=== PATIENT | male | born 2005 | race Caucasian/White ===

== ENCOUNTER 2025-07-18 17:58 | Emergency (ER) | payer OTHER ==
[~2025-07-18] VITALS: Ht 185.4 cm; Wt 89.1 kg
[2025-07-18 20:39] VITALS: BP 143/76; TEMP 98.3; O2SAT 98
== END 2025-07-18 20:47 | disposition home or self-care (01) ==
LOC: M ED 17:58
DX: N50.3 Cyst of epididymis (principal); F17.290 Nicotine dependence, other tobacco product, uncomplicated; Z88.1 Allergy status to other antibiotic agents

== ENCOUNTER 2025-10-14 08:26 | Day surgery (SDC) | payer OTHER ==
[~2025-10-14] VITALS: Ht 185.4 cm; Wt 89.9 kg
[2025-10-14] MEDS ORDERED: dexAMETHasone 4 MG/ML 1 ML VIAL As Ordered ONE (09:54)
[2025-10-14] MEDS ORDERED: LIDOCAINE 2% 100 MG/5 ML SDV (FOR ANES.) As Ordered ONE (09:54)
[2025-10-14] MEDS ORDERED: MIDAZOLAM INJ 2 MG/2 ML VIAL As Ordered ONE (09:54)
[2025-10-14] MEDS ORDERED: ONDANSETRON 4MG/2ML VIAL As Ordered ONE (09:57)
[2025-10-14] MEDS ORDERED: KETOROLAC 30 MG/ML 1 ML VIAL As Ordered ONE (09:57)
[2025-10-14] MEDS: ceFAZolin SOD 2 GM IV ONCE IV ONE (10:09)
[2025-10-14] MEDS ORDERED: ACETAMINOPHEN 1000MG/100ML IV BAG As Ordered ONE (10:19)
[2025-10-14] MEDS ORDERED: HYDROmorphone HCL 2 MG/ML 1 ML VIAL As Ordered ONE (10:34)
[2025-10-14] MEDS: LIDOCAINE 1% SDV 30 ML VIAL As Ordered ONE (10:55)
[2025-10-14] MEDS ORDERED: LR 1,000 ML IV SCH (11:10)
[2025-10-14] MEDS ORDERED: ONDANSETRON 4MG/2ML VIAL IV PRN (11:10)
[2025-10-14] MEDS ORDERED: HYDROMORPHONE HCL 0.5 MG/0.5 ML SYRINGE IV PRN (11:10)
[2025-10-14] MEDS ORDERED: CEPH500C PO (11:24)
[2025-10-14] MEDS ORDERED: OXYC1TAB23 PO (11:24)
[2025-10-14 12:20] VITALS: BP 131/66; TEMP 97.8; O2SAT 100
== END 2025-10-14 13:00 | disposition home or self-care (01) ==
LOC: M SDC 08:26
PROVIDERS: ATTEND Urology
DX: N44.00 Torsion of testis, unspecified (principal); F17.290 Nicotine dependence, other tobacco product, uncomplicated; Z88.1 Allergy status to other antibiotic agents
CPT/HCPCS: 54640; J0131; J0665; J0688; J1100; J1171; J1885; J2250; J2405; J3010